=== PATIENT | male | born 1950 | race Caucasian/White ===

== ENCOUNTER 2016-11-27 21:24 | Emergency (ER) | payer BC, OTHER ==
[~2016-11-27] VITALS: Ht 172.7 cm; Wt 57.7 kg
[2016-11-27 21:28] VITALS: TEMP 36.9; Ht 172.7 cm; Wt 57.7 kg
[2016-11-27] MEDS ORDERED: MoRPHine SULFATE 4 MG/ML 1 ML CARP\\VIAL IV STA (21:42)
[2016-11-27] MEDS ORDERED: SODIUM CHLORIDE 0.9% 1000ML 1,000 ML IV STA (21:42)
[2016-11-27] MEDS ORDERED: ONDANSETRON INJ 2 MG/ML 2 ML VIAL IV STA (21:42)
--- NOTE | 2016-11-27 21:49 | EMERGENCY ROOM VISIT NOTE ---
History First contact with patient: 21:31 Chief Complaint: ABDOMINAL PAIN Stated Complaint: SEVERE ABDOMINAL PAIN, HERNIA Nursing Triage Summary: Sudden onset of abd pain while fishing today. Hx of inguinal hernia History of Present Illness The patient is a 65 year old male who presents to the Emergency Room with complaints of abdominal pain which has been intermittent for the past 2 months and worsened tonight. The patient states that he has had occasional pain in his right groin for the past few months. He reports lumps in both sides of his groin. He states that tonight a few hours ago, he was fishing and the pain suddenly became worse. He states the pain happened suddenly. He rates the discomfort a 6/10. He denies any aggravating or alleviating factors. He denies any urinary symptoms, changes in bowel movements, blood in his stools, nausea, vomiting or fevers. He states that he is otherwise healthy. He has not taken any medications for these symptoms. Review of Systems A complete 10 point review of systems was reviewed with the patient with pertinent positives and negatives as per history of present illness. All else were negative. Social History Smoking Status: Current Every Day Smoker Current/Historical Medications No Active Prescriptions or Reported Meds Allergies Coded Allergies: No Known Allergies (Unverified , 11/27/16) Physical Exam Vital Signs Date Time Temp Pulse Resp B/P (MAP) Pulse Ox O2 Delivery O2 Flow Rate FiO2 11/28/16 00:10 60 16 139/83 96 Room Air 11/27/16 22:26 66 16 163/91 96 Room Air 11/27/16 21:28 36.9 67 18 188/92 99 Room Air Physical Exam VITALS: Vitals are noted on the nurse's note and reviewed by myself. Vital signs stable. GENERAL: This is a 65-year-old female, in no acute distress, nondiaphoretic, well-developed well-nourished. HEART: Regular rate and rhythm without murmurs gallops or rubs. LUNGS: Clear to auscultation bilaterally without wheezes, rales or rhonchi. No retractions or accessory muscle use. ABDOMEN: Positive bowel sounds x 4. Soft, no significant tenderness to palpation. There is a firm lump palpable in the right inguinal region. This is tender to palpation. No skin changes. NEURO: Patient was alert and oriented to person place and time. Medical Decision & Procedures ER Provider Diagnostic Interpretation: CT ABDOMEN & PELVIS: No evidence of inguinal hernia. Small amount of free fluid adjacent to liver tip. Evaluation of bowel limited by lack of oral contrast and paucity of intra- abdominal fat. Dilated loop of small bowel in left abdomen, nonspecific. This could be related to peristalsis, but there is decompression of distal small bowel and part of colon and possibility of bowel obstruction not excluded. Appendix not identified. Bladder is distended. 5 mm hypodensity right lobe of liver, incompletely characterized. Atherosclerotic calcification. Subsegmental likely atelectatic changes at the visualized lower lungs. Degenerative changes of lumbar spine. Radiologist: Trey Arrington MD Laboratory Results 11/27/16 22:10 Red Blood Count 4.79, Mean Corpuscular Volume 95.2, Mean Corpuscular Hemoglobin 33.6, Mean Corpuscular Hemoglobin Concent 35.3, Mean Platelet Volume 9.5, Neutrophils (%) (Auto) 82.9, Lymphocytes (%) (Auto) 11.3, Monocytes (%) (Auto) 4.7, Eosinophils (%) (Auto) 0.5, Basophils (%) (Auto) 0.3, Neutrophils # (Auto) 10.99, Lymphocytes # (Auto) 1.50, Monocytes # (Auto) 0.62, Eosinophils # (Auto) 0.07, Basophils # (Auto) 0.04 11/27/16 22:10 Test 11/27/16 21:55 11/27/16 22:10 Urine Color YELLOW Urine Appearance CLEAR (CLEAR) Urine pH 5.0 (4.5-7.5) Urine Specific [place] 1.022 (1.000-1.030) Urine Protein NEG (NEG) Urine Glucose (UA) NEG (NEG) Urine Ketones TRACE (NEG) Urine Occult Blood 2+ (NEG) Urine Nitrite NEG (NEG) Urine Bilirubin NEG (NEG) Urine Urobilinogen NEG (NEG) Urine Leukocyte Esterase NEG (NEG) Urine WBC (Auto) 1-5 /hpf (0-5) Urine RBC (Auto) 0-4 /hpf (0-4) Urine Hyaline Casts (Auto) 0 /lpf (0-5) Urine Epithelial Cells (Auto) 5-10 /lpf (0-5) Urine Bacteria (Auto) NEG (NEG) White Blood Count 13.26 K/uL (4.8-10.8) Red Blood Count 4.79 M/uL (4.7-6.1) Hemoglobin 16.1 g/dL (14.0-18.0) Hematocrit 45.6 % (42-52) Mean Corpuscular Volume 95.2 fL (80-100) Mean Corpuscular Hemoglobin 33.6 pg (25-34) Mean Corpuscular Hemoglobin Concent 35.3 g/dl (32-36) Platelet Count 297 K/uL (130-400) Mean Platelet Volume 9.5 fL (7.4-10.4) Neutrophils (%) (Auto) 82.9 % Lymphocytes (%) (Auto) 11.3 % Monocytes (%) (Auto) 4.7 % Eosinophils (%) (Auto) 0.5 % Basophils (%) (Auto) 0.3 % Neutrophils # (Auto) 10.99 K/uL (1.4-6.5) Lymphocytes # (Auto) 1.50 K/uL (1.2-3.4) Monocytes # (Auto) 0.62 K/uL (0.11-0.59) Eosinophils # (Auto) 0.07 K/uL (0-0.5) Basophils # (Auto) 0.04 K/uL (0-0.2) RDW Standard Deviation 50.5 fL (36.4-46.3) RDW Coefficient of Variation 14.4 % (11.5-14.5) Immature Granulocyte % (Auto) 0.3 % Immature Granulocyte # (Auto) 0.04 K/uL (0.00-0.02) Anion Gap 9.0 mmol/L (3-11) Est Creatinine Clear Calc Drug Dose 60.9 ml/min Estimated GFR () 91.8 Estimated GFR (Non- 79.2 BUN/Creatinine Ratio 12.1 (10-20) Calcium Level 10.0 mg/dl (8.5-10.1) Total Bilirubin 0.3 mg/dl (0.2-1) Aspartate Amino Transf (AST/SGOT) 21 U/L (15-37) Alanine Aminotransferase (ALT/SGPT) 21 U/L (12-78) Alkaline Phosphatase 79 U/L (45-117) Total Protein 7.7 gm/dl (6.4-8.2) Albumin 4.7 gm/dl (3.4-5.0) Globulin 3.0 gm/dl (2.5-4.0) Albumin/Globulin Ratio 1.6 (0.9-2) Lipase 100 U/L (73-393) Medications Administered Medications (Trade) Dose Ordered Sig/Alexis Route Start Time Stop Time Status Last Admin Dose Admin Sodium Chloride 1,000 ml @ 999 mls/hr Q1H1M STAT IV 11/27/16 21:42 11/27/16 22:42 DC 11/27/16 22:10 999 MLS/HR Morphine Sulfate (MoRPHine SULFATE INJ) 4 mg NOW STAT IV 11/27/16 21:42 11/27/16 21:44 DC 11/27/16 22:10 4 MG Ondansetron HCl (Zofran Inj) 4 mg NOW STAT IV 11/27/16 21:42 11/27/16 21:44 DC 11/27/16 22:09 4 MG ED Course The patient was evaluated as above. Labs were drawn and IV access was obtained. Patient was medicated with 4 mg morphine and [address] of the abdomen and pelvis was performed and read by radiology as above. Discharge instructions were reviewed with the patient. The patient verbalized understanding of my assessment and treatment plan and was discharged home in good condition. Medical Decision Differential diagnosis includes bowel obstruction, diverticulitis, mesenteric adenitis, inguinal hernia, among others. The patient is a 65-year-old female who presents today complaining of right groin pain. Labs revealed a mild leukocytosis. No concerning anemia or electrolyte abnormality. Urinalysis was not suggestive of infection. CT scan showed findings consistent with an enteritis. Stat rad radiologist did comment on the possibility of a bowel obstruction, however given normal bowel movements and no vomiting until this is unlikely. The patient was instructed to give a clear liquid diet for the next few days and follow-up with his primary care provider for further evaluation and treatment. He was instructed to return here if he does develop vomiting, worsening pain, fevers or any other new/ concerning symptoms. The patient's case was reviewed with Dr. Reyna, ED attending physician, who agreed with my assessment and treatment plan. Based on the patient's presentation and work up, I feel the patient is stable for outpatient treatment. The patient was educated to return to the emergency department for any worsening of their current condition or new/concerning symptoms. He will follow up with his primary care provider. Medication reconciliation: I attest that I have personally reviewed the patient 's current medication list. Blood Pressure Screening: Patient was found to have a slightly elevated blood pressure due to circumstances. I do not believe that the patient requires hypertension monitoring. Impression Primary Impression: Lower abdominal pain Departure Information Dispostion Home / Self-Care Condition GOOD Prescriptions No Active Prescriptions or Reported Meds Referrals Landen Awad M.D. (PCP) Patient Instructions My [facility] Additional Instructions Clear liquid diet for the next 2-3 days or until you start feeling better. For pain control, you can use the following giog-xgy-lnyhakn medicines (if >12 yo): - Regular strength (325mg/tab) Tylenol (acetaminophen) 2 tabs every 4-6 hours as needed. Do not exceed 12 tablets in a 24 hour period. Avoid taking more than 4 grams (4000 mg) of Tylenol per day. This includes any other sources of acetaminophen you may take on a regular basis. - Regular strength (200 mg/tab) Advil (ibuprofen) 1-2 tabs every 4-6 hours as needed. Do not exceed a dose of 3200 mg per day. Follow-up with your primary care brother within one week. Return to the emergency department with any vomiting, fevers, worsening abdominal pain or other new/concerning symptoms.
[2016-11-27] MEDS ORDERED: OPTIRAY 320 IV PRN (22:00)
[2016-11-27 22:28] LABS: BASO % 0.3 %; BASO ABS # 0.04 K/uL (0-0.2); COMPLETE YES; EOS % 0.5 %; HEMATOCRIT 45.6 % (42-52); IG% 0.3 %; LYMPH % 11.3 %; MEAN CELL VOLUME 95.2 fL (80-100); MEAN CORPUSCULAR HEMOGLOBIN 33.6 pg (25-34); MEAN CORPUSCULAR HGB CONC 35.3 g/dl (32-36); MEAN PLATELET VOLUME 9.5 fL (7.4-10.4); MONO % 4.7 %; NEUT % 82.9 %; PLATELET COUNT 297 K/uL (130-400); RED BLOOD COUNT 4.79 M/uL (4.7-6.1); WHITE BLOOD COUNT 13.26 K/uL (4.8-10.8)
[2016-11-27 22:43] LABS: BUN/CREATININE RATIO 12.1 (10-20); POTASSIUM 4.1 mmol/L (3.5-5.1)
[2016-11-27 22:44] LABS: MANUAL MICROSCOPIC REQUIRED? NO; REVIEW REQ? NO; URINE APPEARANCE CLEAR (CLEAR); URINE BILIRUBIN NEG (NEG); URINE COLOR YELLOW; URINE NITRITE NEG (NEG); URINE SPECIFIC GRAVITY 1.022 (1.000-1.030); UROBILINOGEN NEG (NEG); ZZUR CULT IF INDIC CLEAN CATCH NO
[2016-11-27 22:46] LABS: ALB/GLOB RATIO 1.6 (0.9-2)
[2016-11-28 00:10] VITALS: BP 139/83; PULSE 60; O2SAT 96
--- NOTE | 2016-11-28 07:18 | DIAGNOSTIC IMAGING REPORT ---
ABD/PELVIS IV CONTRAST ONLY HISTORY:65 yearsMaleright groin pain, swelling COMPARISON: None available. TECHNIQUE: Multiple axial CT images of the abdomen and pelvis were obtained following the intravenous administration of 115 mL Optiray 320. FINDINGS: Exam is mildly limited secondary to patient motion. Ground glass opacities of the lung bases suggest passive atelectasis. There is mild motion artifact of the lung bases with calcified granulomas present within the posterior basal segment left lower lobe. No gross pneumoperitoneum. The imaged inferior cardiac chambers are unremarkable. There is a 6 x 5 mm low attenuating lesion of the anterior segment right hepatic lobe which is nonspecific however would statistically favor a cyst or hemangioma. The gallbladder, spleen, pancreas and adrenal glands appear to be within normal limits. Bilateral kidneys are unremarkable. There is distention of the urinary bladder lumen. There is tortuosity and atherosclerosis of the abdominal aorta. Is a mildly dilated fluid-filled loop of small bowel in left upper quadrant without evidence of proximal obstruction. The appendix is not definitively seen. No mass or collection is seen within the region of the right groin. No hernia identified. Discogenic degeneration is present at L4-L5 and L5-S1 along with facet arthrosis at these levels. IMPRESSION: 1. No acute intra-abdominal or intrapelvic abnormality identified. Specifically, the right groin appears unremarkable without hernia or mass. 2. Mildly dilated fluid-filled loop of small bowel in the left upper abdomen without evidence of proximal obstruction may reflect ileus or enteritis. 3. Appendix not identified. 4. Prior granulomatous disease. The above report was generated using voice recognition software. It may contain grammatical, syntax or spelling errors. Electronically signed by: Jeffrey Espinal 11/28/2016 7:17 AM Dictated Date/Time: 11/28/2016 7:07 AM
== END 2016-11-28 00:40 | disposition home or self-care (01) ==
LOC: C.EDB 21:25
DX: R10.30 Lower abdominal pain, unspecified (principal); F17.210 Nicotine dependence, cigarettes, uncomplicated

== ENCOUNTER 2017-04-03 07:55 | Emergency (ER) | payer BC ==
[~2017-04-03] VITALS: Ht 172.7 cm; Wt 57.2 kg
[2017-04-03 08:00] VITALS: TEMP 37; Ht 172.7 cm; Wt 57.2 kg
[2017-04-03] MEDS ORDERED: OXYMETAZOLINE HCL 0.05% NA SPR 15 ML BTL ONE (08:06)
--- NOTE | 2017-04-03 08:19 | EMERGENCY ROOM VISIT NOTE ---
History Report prepared by Dagmar: Renee Baez Under the Supervision of: Dr. Paul Duke M.D. First contact with patient: 08:10 Chief Complaint: NOSE BLEED (MINOR) Stated Complaint: NOSE BLEED History of Present Illness The patient is a 66 year old male who presents to the Emergency Room with complaints of a persistent left sided epistaxis that began last night around 2300. He currently rates his discomfort as a 1/10 in severity. The patient states that last evening he was out by his wood burner when he began experiencing a nose bleed. He reports recent congestion and a headache. The patient states that he thought he had a runny nose last night, but then notes bleeding. He denies being on any anticoagulants or history of previous nose bleeds. The patient denies any trauma. Source of History: patient Onset: last night around 2300 Position: nose (left sided) Symptom Intensity: 1/10 Quality: other (epistaxis) Timing: other (persistent) Associated Symptoms: + headache Note: Associated Symptoms: recent congestion. Review of Systems All systems have been listed, reviewed, and are negative other than those previously mentioned. Please see Additional Medical History Sheet. Past Medical & Surgical Medical Problems: (1) No active medical problems Family History Cancer Diabetes mellitus Social History Smoking Status: Current Every Day Smoker Alcohol Use: occasionally Marital Status: Housing Status: lives with significant other Occupation Status: retired Current/Historical Medications No Active Prescriptions or Reported Meds Allergies Coded Allergies: BEE STING (Unverified Allergy, Unknown, ,, 04/03/17) Physical Exam Vital Signs Date Time Temp Pulse Resp B/P (MAP) Pulse Ox O2 Delivery O2 Flow Rate FiO2 04/03/17 18:42 89 18 151/89 96 04/03/17 18:04 89 20 151/89 96 Room Air 04/03/17 17:30 79 18 171/97 96 Room Air 04/03/17 16:40 74 18 168/100 94 Room Air 04/03/17 15:58 74 16 181/112 94 Room Air 04/03/17 14:45 68 20 183/97 98 Room Air 04/03/17 13:09 64 20 175/102 100 Room Air 04/03/17 12:28 79 04/03/17 11:08 73 18 169/89 98 Room Air 04/03/17 09:28 84 18 147/96 96 Room Air 04/03/17 08:00 37.0 78 18 139/88 98 Room Air Physical Exam GENERAL: Patient awake, alert, oriented x 3. Patient follows commands. Patient does not appear toxic. Patient is adequately hydrated and well- nourished. SKIN: No erythema, pallor, cyanosis or rash HEENT: Normal head, pupils equal, reactive to light and accommodation. Blood in both naris, no active bleeding at present time. Ears normal. Oral cavity and posterior pharynx appear normal. Neck: Without adenopathy, no neck vein distention. LUNGS: Clear to auscultation. No wheezes, no rales, no rhonchi. HEART: No murmurs. No gallops. No rubs NEUROLOGIC: Cranial nerves II-XII within normal limits. No gross motor sensory function deficits. Medical Decision & Procedures Laboratory Results 04/03/17 12:18 Red Blood Count 4.80, Mean Corpuscular Volume 96.0, Mean Corpuscular Hemoglobin 33.8, Mean Corpuscular Hemoglobin Concent 35.1, Mean Platelet Volume 9.0, Neutrophils (%) (Auto) 76.8, Lymphocytes (%) (Auto) 17.5, Monocytes (%) (Auto) 4.6, Eosinophils (%) (Auto) 0.7, Basophils (%) (Auto) 0.3, Neutrophils # (Auto) 5.79, Lymphocytes # (Auto) 1.32, Monocytes # (Auto) 0.35, Eosinophils # (Auto) 0.05, Basophils # (Auto) 0.02 04/03/17 13:09 Test 04/03/17 12:18 04/03/17 13:09 White Blood Count 7.54 K/uL (4.8-10.8) Red Blood Count 4.80 M/uL (4.7-6.1) Hemoglobin 16.2 g/dL (14.0-18.0) Hematocrit 46.1 % (42-52) Mean Corpuscular Volume 96.0 fL (80-100) Mean Corpuscular Hemoglobin 33.8 pg (25-34) Mean Corpuscular Hemoglobin Concent 35.1 g/dl (32-36) Platelet Count 268 K/uL (130-400) Mean Platelet Volume 9.0 fL (7.4-10.4) Neutrophils (%) (Auto) 76.8 % Lymphocytes (%) (Auto) 17.5 % Monocytes (%) (Auto) 4.6 % Eosinophils (%) (Auto) 0.7 % Basophils (%) (Auto) 0.3 % Neutrophils # (Auto) 5.79 K/uL (1.4-6.5) Lymphocytes # (Auto) 1.32 K/uL (1.2-3.4) Monocytes # (Auto) 0.35 K/uL (0.11-0.59) Eosinophils # (Auto) 0.05 K/uL (0-0.5) Basophils # (Auto) 0.02 K/uL (0-0.2) RDW Standard Deviation 51.6 fL (36.4-46.3) RDW Coefficient of Variation 14.6 % (11.5-14.5) Immature Granulocyte % (Auto) 0.1 % Immature Granulocyte # (Auto) 0.01 K/uL (0.00-0.02) Prothrombin Time 10.7 SECONDS (9.0-12.0) Prothromb Time International Ratio 1.0 (0.9-1.1) Activated Partial Thromboplast Time 30.8 SECONDS (21.0-31.0) Partial Thromboplastin Ratio 1.2 Anion Gap 7.0 mmol/L (3-11) Est Creatinine Clear Calc Drug Dose 86.4 ml/min Estimated GFR () 115.5 Estimated GFR (Non- 99.6 BUN/Creatinine Ratio 24.5 (10-20) Calcium Level 9.5 mg/dl (8.5-10.1) Laboratory results as stated above per my review. Medications Administered Medications (Trade) Dose Ordered Sig/Alexis Route Start Time Stop Time Status Last Admin Dose Admin Oxymetazoline HCl (Afrin 0.05% Nasal [place]) 75 sprays STK-MED ONCE .ROUTE 04/03/17 08:06 04/03/17 08:07 DC 04/03/17 08:06 75 SPRAYS Morphine Sulfate (MoRPHine SULFATE INJ) 6 mg Q1H PRN IV 04/03/17 12:00 04/03/17 19:40 DC 04/03/17 15:30 6 MG Ondansetron HCl (Zofran Inj) 4 mg Q1HWA PRN IV 04/03/17 12:00 04/03/17 19:40 DC 04/03/17 15:30 4 MG Morphine Sulfate (MoRPHine SULFATE INJ) 6 mg NOW STAT IV 04/03/17 16:14 04/03/17 16:18 DC 04/03/17 16:24 6 MG Hydralazine HCl (HydrALAZINE INJ) 10 mg NOW STAT IV. 04/03/17 16:53 04/03/17 16:54 DC 04/03/17 16:58 5 MG Hydralazine HCl (HydrALAZINE INJ) 10 mg NOW STAT IV. 04/03/17 17:41 04/03/17 17:42 DC 04/03/17 18:00 5 MG ED Course 0806: Ordered Oxymetazoline HCl 75 sprays .route 0811: Past medical records reviewed. The patient was evaluated in room A11B. A complete history and physical examination was performed. 0842: I reevaluated the patient and he is noted to have a large clot in his left naris. The patient was asked to blow all the clots out of his left naris and 2 puffs of Afarin was reapplied. 0911: I reevaluated the patient and he is not bleeding at the current time. 0930: Per nursing staff, the patients nose is bleeding again. 0948: I reevaluated the patient and he is now bleeding at the present time. 1038: I reevaluated the patient and I inserted a 5.5 cm rhino rocket up the patients naris without complication, but it was painful for the patient. 1105: I reevaluated the patient and he has a small amount of blood coming out of his anterior naris. 1149: Per nursing staff the patients nose is still bleeding and he is now beginning to feel weak. 1154: I reevaluated the patient and he is continuing to bleed from the left side of his nose. 1200: Ordered Zofran Inj 4 mg IV, Morphine Sulfate 6 mg IV. 1210: I repacked the patients nose at this time. 1417: I reevaluated the patient and he is still bleeding from his left naris. 1440: I discussed the patients case with Dr. De Leon ENTs nurse. She states that she will give Dr. De Leon the information and that he will call back. 1500: The patient was signed out to Dr. Sharma at change of shift. I discussed the patients case with Dr. De Leon ENT. He will come in to see the patient. Medical Decision Nurses notes reviewed. Medical history sheet reviewed. Differential diagnosis includes but is not limited to: epistaxis, coagulopathy. 66-year-old male with epistaxis. The patient denies any recent trauma. He does have a woodstove in his house. He denies prior history of epistaxis. The patient has no history of quite neuropathy. He is currently not on any anticoagulants. I initially attempted to stop the bleeding with Afrin and pressure. That was not effective. I attempted to find the source of his bleed but could not locate it and therefore a 5.5 Rhino Rocket was placed and inflated with 5 mL of air. That also was unsuccessful and therefore I inserted a large spongelike Rhino Rocket into the left nares. That did not stop the bleed. Labs were evaluated. Please see above. The patient is not anemic. Consultation was obtained with . In the meantime, the case was signed off to Dr. Sharma. Medication Reconcilliation Current Medication List: was personally reviewed by me Consults Time Called: 1417 Consulting Physician: Dr. De Leon, ENT's nurse Returned Call: 1440 I discussed the patients case with Dr. De Leon ENTs nurse. She states that she will give Dr. De Leon the information and that he will call back. Impression Primary Impression: Epistaxis Scribe Attestation The scribe's documentation has been prepared under my direction and personally reviewed by me in its entirety. I confirm that the note above accurately reflects all work, treatment, procedures, and medical decision making performed by me. Departure Information Dispostion Still a Patient Prescriptions No Active Prescriptions or Reported Meds Referrals Landen Awad M.D. (PCP)
[2017-04-03] MEDS: MoRPHine SULFATE 10 MG/ML CARP/VIAL IV PRN ×2 (12:16→15:30)
[2017-04-03] MEDS: ONDANSETRON INJ 2 MG/ML 2 ML VIAL IV PRN ×2 (12:16→15:30)
[2017-04-03 12:35] LABS: BASO % 0.3 %; BASO ABS # 0.02 K/uL (0-0.2); COMPLETE YES; EOS % 0.7 %; HEMATOCRIT 46.1 % (42-52); IG% 0.1 %; LYMPH % 17.5 %; LYMPH ABS # 1.32 K/uL (1.2-3.4); MEAN CORPUSCULAR HEMOGLOBIN 33.8 pg (25-34); MEAN CORPUSCULAR HGB CONC 35.1 g/dl (32-36); MONO % 4.6 %; NEUT % 76.8 %; PLATELET COUNT 268 K/uL (130-400); WHITE BLOOD COUNT 7.54 K/uL (4.8-10.8)
[2017-04-03 12:51] LABS: PARTIAL THROMBOPLASTIN RATIO 1.2; PROTHROMBIN TIME (PATIENT) 10.7 SECONDS (9.0-12.0)
[2017-04-03 13:43] LABS: BUN/CREATININE RATIO 24.5 (10-20); CALCIUM 9.5 mg/dl (8.5-10.1); CREATININE 0.69 mg/dl (0.60-1.40); POTASSIUM 3.7 mmol/L (3.5-5.1)
--- NOTE | 2017-04-03 16:04 | EMERGENCY ROOM VISIT NOTE ---
ED Visit Note First contact with patient: 15:40
[2017-04-03] MEDS ORDERED: MoRPHine SULFATE 10 MG/ML CARP/VIAL IV STA (16:14)
--- NOTE | 2017-04-03 16:21 | Medical Consult ---
Consultation Date of Consultation: Apr 03, 2017. Attending Physician: History of Present Illness 66 yo male who presented to the ED early this am with a left sided epistaxis. Patient denies previous history of epistaxis. Patient denies trauma. He states that his nose started bleeding last night around 11pm. It did not stop so he presented to the ED this morning. In the ED, Dr. Duke attempted placement of an anterior rapid rhino but the bleeding persisted. He then tried a posterior sponge packing but bleeding continued. He called my office at around 3 pm for assistance. Patient denies any alleviating or exacerbating factors. No bleeding from the right side. He does have history of breaking his nose previously, but no acute trauma. He denies HTN. He denies atherosclerotic disease. He does smoke daily. Past Medical/Surgical History Medical Problems: (1) Epistaxis Status: Acute Family History Cancer Diabetes mellitus Social History Smoking Status: Current Every Day Smoker Marital Status: Housing Status: lives with significant other Occupation Status: retired Allergies Coded Allergies: BEE STING (Unverified Allergy, Unknown, ,, 04/03/17) Current Inpatient Medications Current Inpatient Medications Medications (Trade) Dose Ordered Sig/Alexis Route Start Time Stop Time Status Last Admin Dose Admin Morphine Sulfate (MoRPHine SULFATE INJ) 6 mg Q1H PRN IV 04/03/17 12:00 04/17/17 11:59 04/03/17 15:30 6 MG Ondansetron HCl (Zofran Inj) 4 mg Q1HWA PRN IV 04/03/17 12:00 05/03/17 11:59 04/03/17 15:30 4 MG Review of Systems Constitutional: No fever, No chills, No sweats, No weight loss, No weakness, No fatigue, No problem reported Eyes: No worsening of vision, No eye pain, No redness, No discharge, No diplopia, No problem reported ENT: + unusual epistaxis Respiratory: No cough, No sputum, No wheezing, No shortness of breath, No dyspnea on exertion, No dyspnea at rest, No hemoptysis, No problem reported Cardiovascular: No chest pain, No orthopnea, No PND, No edema, No claudication , No palpitations, No problem reported Abdomen: No pain, No nausea, No vomiting, No diarrhea, No constipation, No GI bleeding, No problem reported Neurologic: No memory loss, No paralysis, No weakness, No numbness/tingling, No vertigo, No balance problems, No problem reported Integumentary: No rash, No itch, No new/changing skin lesions, No color change , No bleeding, No problem reported Physical Exam Date Time Temp Pulse Resp B/P (MAP) Pulse Ox O2 Delivery O2 Flow Rate FiO2 04/03/17 15:58 74 16 181/112 94 Room Air 04/03/17 14:45 68 20 183/97 98 Room Air 04/03/17 13:09 64 20 175/102 100 Room Air 04/03/17 12:28 79 04/03/17 11:08 73 18 169/89 98 Room Air 04/03/17 09:28 84 18 147/96 96 Room Air 04/03/17 08:00 37.0 78 18 139/88 98 Room Air PROCEDURE Attention was directed to the left nare. The sponge pack was removed. Exam with a headlight commenced. Suction of the clot and active bleeding was performed. Patient does have a fairly severe leftward septal deviation. Blood was noted to be welling up in the nose. A 7.5 balloon pack was placed and inflated. This did control the anterior bleeding, but active bleeding on the posterior pharyngeal wall continued. More air was then placed in the balloon pack. This did not stop the bleeding posteriorly either. Thus, a formal pack was placed. The 7.5 balloon pack was removed. A 16 hong konger chapman catheter was placed through the nose and into the pharynx posteriorly. The balloon was inflated with saline. It was then pulled anteriorly against the choana. After securing it against the choana, vaseline gauze was packed from the floor of the nose, superiorly to stop the anterior bleeding portion. Once the bleeding had ceased, an umbilical clamp was used to secure the chapman and keep pressure on the vaseline gauze anteriorly. Patient tolerated procedure well. General Appearance: WD/WN, + mild distress Head: normocephalic, atraumatic Eyes: normal inspection, PERRL, EOMI ENT: hearing grossly normal, + pertinent finding (active epistaxis posteriorly on posterior pharyngeal wall as well as anteriorly through the sponge pack) Neck: supple, no adenopathy Respiratory/Chest: no respiratory distress, no accessory muscle use Skin: normal color, warm/dry Lymphatic: no adenopathy Laboratory Results Last 24 Hours Test 04/03/17 12:18 04/03/17 13:09 White Blood Count 7.54 K/uL Red Blood Count 4.80 M/uL Hemoglobin 16.2 g/dL Hematocrit 46.1 % Mean Corpuscular Volume 96.0 fL Mean Corpuscular Hemoglobin 33.8 pg Mean Corpuscular Hemoglobin Concent 35.1 g/dl Platelet Count 268 K/uL Mean Platelet Volume 9.0 fL Neutrophils (%) (Auto) 76.8 % Lymphocytes (%) (Auto) 17.5 % Monocytes (%) (Auto) 4.6 % Eosinophils (%) (Auto) 0.7 % Basophils (%) (Auto) 0.3 % Neutrophils # (Auto) 5.79 K/uL Lymphocytes # (Auto) 1.32 K/uL Monocytes # (Auto) 0.35 K/uL Eosinophils # (Auto) 0.05 K/uL Basophils # (Auto) 0.02 K/uL RDW Standard Deviation 51.6 fL RDW Coefficient of Variation 14.6 % Immature Granulocyte % (Auto) 0.1 % Immature Granulocyte # (Auto) 0.01 K/uL Prothrombin Time 10.7 SECONDS Prothromb Time International Ratio 1.0 Activated Partial Thromboplast Time 30.8 SECONDS Partial Thromboplastin Ratio 1.2 Sodium Level 140 mmol/L Potassium Level 3.7 mmol/L Chloride Level 106 mmol/L Carbon Dioxide Level 27 mmol/L Anion Gap 7.0 mmol/L Blood Urea Nitrogen 17 mg/dl Creatinine 0.69 mg/dl Est Creatinine Clear Calc Drug Dose 86.4 ml/min Estimated GFR () 115.5 Estimated GFR (Non- 99.6 BUN/Creatinine Ratio 24.5 Random Glucose 103 mg/dl Calcium Level 9.5 mg/dl Assessment & Plan 66 yo male with left sided posterior epistaxis - suspect sphenopalatine artery bleed - formal posterior pack placed as above - recommend transfer to tertiary care center for consideration of SPA embolization. - ED docs did coordinate transfer to [facility] to a medicine service - Discussed with Dr. Betancur who agrees with plan, and his service will be consultants along with the interventional radiology service for embolization.
[2017-04-03] MEDS ORDERED: HydrALAZINE HCL 20 MG/ML VIAL IV. STA ×2 (16:53→17:41)
[2017-04-03 18:42] VITALS: BP 151/89; PULSE 89; O2SAT 96
--- NOTE | 2017-04-03 22:34 | EMERGENCY ROOM VISIT NOTE ---
History First contact with patient: 15:40 Chief Complaint: NOSE BLEED (MINOR) Stated Complaint: NOSE BLEED History of Present Illness The patient is a 66 year old male who presents to the Emergency Room with complaints of epistaxis. Patient was signed out to me following being present in the ER for 8 hours. He denies any bleeding risk factors. He denies any anticoagulation. He notes the bleeding is coming from the left side of his nausea. This has been on and off today. Patient was being evaluated by ENT at this time. Please see Dr. Duke's note for full HPI. Patient did admit to a mild headache with the packing and bleeding. He denied any chest pain or shortness of breath. No trouble breathing. Review of Systems Please see history of present illness. Past Medical/Surgical History Medical Problems: (1) No active medical problems Family History Cancer Diabetes mellitus Social History Smoking Status: Current Every Day Smoker Alcohol Use: occasionally Marital Status: Housing Status: lives with significant other Occupation Status: retired Current/Historical Medications No Active Prescriptions or Reported Meds Physical Exam Vital Signs Date Time Temp Pulse Resp B/P (MAP) Pulse Ox O2 Delivery O2 Flow Rate FiO2 04/03/17 18:42 89 18 151/89 96 04/03/17 18:04 89 20 151/89 96 Room Air 04/03/17 17:30 79 18 171/97 96 Room Air 04/03/17 16:40 74 18 168/100 94 Room Air 04/03/17 15:58 74 16 181/112 94 Room Air 04/03/17 14:45 68 20 183/97 98 Room Air 04/03/17 13:09 64 20 175/102 100 Room Air 04/03/17 12:28 79 04/03/17 11:08 73 18 169/89 98 Room Air 04/03/17 09:28 84 18 147/96 96 Room Air 04/03/17 08:00 37.0 78 18 139/88 98 Room Air Physical Exam GENERAL: Sitting up in bed, cachectic, disheveled EYE EXAM: normal conjunctiva OROPHARYNX: Small amount of blood in the posterior oropharynx NOSE: bleeding in left nostril. none in right NECK: supple, no nuchal rigidity, no adenopathy, non-tender LUNGS: Normal chest wall mechanics NEURO EXAM: Normal sensorium Medical Decision & Procedures Laboratory Results 04/03/17 12:18 Red Blood Count 4.80, Mean Corpuscular Volume 96.0, Mean Corpuscular Hemoglobin 33.8, Mean Corpuscular Hemoglobin Concent 35.1, Mean Platelet Volume 9.0, Neutrophils (%) (Auto) 76.8, Lymphocytes (%) (Auto) 17.5, Monocytes (%) (Auto) 4.6, Eosinophils (%) (Auto) 0.7, Basophils (%) (Auto) 0.3, Neutrophils # (Auto) 5.79, Lymphocytes # (Auto) 1.32, Monocytes # (Auto) 0.35, Eosinophils # (Auto) 0.05, Basophils # (Auto) 0.02 04/03/17 13:09 Test 04/03/17 12:18 04/03/17 13:09 White Blood Count 7.54 K/uL (4.8-10.8) Red Blood Count 4.80 M/uL (4.7-6.1) Hemoglobin 16.2 g/dL (14.0-18.0) Hematocrit 46.1 % (42-52) Mean Corpuscular Volume 96.0 fL (80-100) Mean Corpuscular Hemoglobin 33.8 pg (25-34) Mean Corpuscular Hemoglobin Concent 35.1 g/dl (32-36) Platelet Count 268 K/uL (130-400) Mean Platelet Volume 9.0 fL (7.4-10.4) Neutrophils (%) (Auto) 76.8 % Lymphocytes (%) (Auto) 17.5 % Monocytes (%) (Auto) 4.6 % Eosinophils (%) (Auto) 0.7 % Basophils (%) (Auto) 0.3 % Neutrophils # (Auto) 5.79 K/uL (1.4-6.5) Lymphocytes # (Auto) 1.32 K/uL (1.2-3.4) Monocytes # (Auto) 0.35 K/uL (0.11-0.59) Eosinophils # (Auto) 0.05 K/uL (0-0.5) Basophils # (Auto) 0.02 K/uL (0-0.2) RDW Standard Deviation 51.6 fL (36.4-46.3) RDW Coefficient of Variation 14.6 % (11.5-14.5) Immature Granulocyte % (Auto) 0.1 % Immature Granulocyte # (Auto) 0.01 K/uL (0.00-0.02) Prothrombin Time 10.7 SECONDS (9.0-12.0) Prothromb Time International Ratio 1.0 (0.9-1.1) Activated Partial Thromboplast Time 30.8 SECONDS (21.0-31.0) Partial Thromboplastin Ratio 1.2 Anion Gap 7.0 mmol/L (3-11) Est Creatinine Clear Calc Drug Dose 86.4 ml/min Estimated GFR () 115.5 Estimated GFR (Non- 99.6 BUN/Creatinine Ratio 24.5 (10-20) Calcium Level 9.5 mg/dl (8.5-10.1) Medications Administered Medications (Trade) Dose Ordered Sig/Alexis Route Start Time Stop Time Status Last Admin Dose Admin Oxymetazoline HCl (Afrin 0.05% Nasal [place]) 75 sprays STK-MED ONCE .ROUTE 04/03/17 08:06 04/03/17 08:07 DC 04/03/17 08:06 75 SPRAYS Morphine Sulfate (MoRPHine SULFATE INJ) 6 mg Q1H PRN IV 04/03/17 12:00 04/03/17 19:40 DC 04/03/17 15:30 6 MG Ondansetron HCl (Zofran Inj) 4 mg Q1HWA PRN IV 04/03/17 12:00 04/03/17 19:40 DC 04/03/17 15:30 4 MG Morphine Sulfate (MoRPHine SULFATE INJ) 6 mg NOW STAT IV 04/03/17 16:14 04/03/17 16:18 DC 04/03/17 16:24 6 MG Hydralazine HCl (HydrALAZINE INJ) 10 mg NOW STAT IV. 04/03/17 16:53 04/03/17 16:54 MN 04/03/17 16:58 5 MG Hydralazine HCl (HydrALAZINE INJ) 10 mg NOW STAT IV. 04/03/17 17:41 04/03/17 17:42 DC 04/03/17 18:00 5 MG Procedure Nasal Packing Indication: epistaxis Verbal consent obtained. Risks and benefits were explained with the usual customary discussion. A time out was taken. Clots were removed with suction. The left naris was prepped with Afrin and lidocaine. A 7.5-cm nasal balloon was placed in a standard fashion. The patient tolerated this well. Hemostasis was achieved. No complications. ED Course 1555: I assessed the patient. He declines anything for pain. Dr. De Leon is bedside applying posterior nasal packing. 1608: I reviewed the patient's case with Dr. Zhou of [facility] ENT. The patient will be transferred to [facility]. 1615: Dr. De Leon discussed the patient's case with Dr. Zhou. 1617: I reviewed the patient's case with Dr. Pascual of [facility] Internal Medicine. The patient will be transferred to [facility] by ground for direct admission. 1700: I reassessed the patient. He has some posterior nasal drip. 1717: Performed nasal packing. See below for details. Medical Decision Patient was a 66-year-old male that was signed out to me by Dr. Duke following being in the ER for over 7 hours. Labs had previously been obtained were unremarkable. No bleeding risk factors. He initially presented for epistaxis of the left nostril. Multiple unsuccessful attempts at packing. On my evaluation Dr. Mims was at bedside evaluating patient. He did place a posterior packing. Patient did tolerate this procedure well. I discussed the case with Dr. Mims, [facility] transfer Center, their ENT physician and internal medicine. Patient was accepted in transfer. I arranged EMS. Updated family. Awaiting transport patient start to rebleed. I [place] [facility] [place] packed the right nostril with a 7-1/ 2 Rhino Rocket. Patient tolerated this procedure well. Was inflated with 6 mL' s. Bleeding ceased at this point. I had my cardiology nurse practitioner [place] [facility] [place] the bleeding did stop so they do not need to divert to the floor. He was eventually transported via ALS. Patient family were updated bedside. He still had a large clot in the posterior pharynx but no active bleeding. Patient was given 2 separate doses of hydralazine as systolic blood pressures were in the 190s and I felt this was complicating his posterior epistaxis as Dr. gallagher also agreed. Pt was also given IV morphine. He was monitored closely with repeat blood pressures as he was extremity hypertensive with an aggressive posterior bleed which was managed with IV hydralazine 2 ordered by myself along with packing of the right nostril and transfer to a tertiary care center for possible embolectomy as recommended by Dr. Mims from my ENT. Blood Pressure Screening Patient's blood pressure: Elevated blood pressure Blood pressure disposition: Elevated BP felt to be situational Impression Primary Impression: Acute posterior epistaxis Additional Impression: Hypertension Critical Care I have personally spent 35 minutes of critical care time in the direct management of this patient. This includes bedside care, interpretation of diagnostic studies, and testing, discussion with consultants, patient, and family members, and other required patient management activities. This 35 minutes is in excess of all separately billable procedures. Departure Information Dispostion Transfer Acute Care Facility Condition FAIR Prescriptions No Active Prescriptions or Reported Meds Referrals Landen Awad M.D. (PCP) Mark De Leon D.O. Forms WORK / SCHOOL INSTRUCTIONS, HOME CARE DOCUMENTATION FORM, IMPORTANT VISIT INFORMATION Patient Instructions My [facility], ED Nosebleed Problem Qualifiers Additional Impression: Hypertension Hypertension type: unspecified Qualified Codes: I10 - Essential (primary) hypertension
== END 2017-04-03 18:45 | disposition short-term general hospital (02) ==
LOC: C.EDB 07:57 → C.EDA 18:45
DX: R04.0 Epistaxis (principal); I10 Essential (primary) hypertension; J34.2 Deviated nasal septum; F17.200 Nicotine dependence, unspecified, uncomplicated; Z83.3 Family history of diabetes mellitus

== ENCOUNTER 2019-06-06 09:50 | Inpatient (IN) ==
--- NOTE | 2019-06-02 13:41 | Anesthesiology Consultation ---
Date of Service June 02, 2019 Left superior mediastinal mass encasing subclavian artery, appears to have involvement of L phrenic nerve and possibly some inpingement of the L recurrent laryngeal. CT does not indicate any compression of the trachea from mass. Assessment & Plan (1) Encounter for pre-operative examination: Chart Review Chart Review: Acceptable Risk for Surgery and Patient NOT seen in Pre Admission Testing Consults Requested none History Surgery Operation Date: 06/06/19 11:40 Proposed Procedures p Robotic Left Video-Assisted Thoracoscopy With Left Upper Wedge Resection, Possible Left Upper Lobectomy, With Mediastinal Lymphadenectomy - Chet Trevino MD, FACS Allergies Allergy/AdvReac Type Severity Reaction Status Date / Time bee venom protein (honey bee) Allergy Severe anaphyllaxi Verified 06/02/19 09:08 s Medications Home Medications Medication Instructions Recorded Confirmed Last Taken alprazolam 1 mg tablet 1 mg PO TID #30 tab 05/20/19 06/02/19 Unknown oxycodone 10 mg tablet 10 mg PO Q12H PRN #30 tab 05/20/19 06/02/19 Unknown oxycodone 10 mg tablet 10 mg PO Q12H PRN #6 tab 06/02/19 06/02/19 Unknown Past Medical History Medical History Hypertension (Chronic) Mediastinal mass (Inactive) Tobacco use disorder Past Family History Family History Mother Diabetes Father Cancer Stroke Past Surgical History Surgical History History of nasal surgery For epistaxis Social History Smoking Status: Current every day smoker tobacco type: cigars Hx Alcohol Use: No Hx Substance Use: No Testing Laboratory Results Laboratory Tests 05/15/19 05/15/19 05/15/19 15:42 15:42 15:42 WBC 9.54 Hgb 13.0 L Hct 38.3 L Plt Count 641 H PT 10.3 INR 1.0 APTT 30.6 Sodium 134 L Potassium 3.7 Chloride 100 Carbon Dioxide 31 BUN 9 Creatinine 0.67 Glucose 94 Electrocardiogram Date: 03/16/19 Findings: + NSR @ Chest X-Ray Date: 05/24/19 Findings: + L hemidiaphragm elevation Pulmonary Function Test Date: 05/26/19 Findings: + FEV1 pre (59) and + DLCO (74); no responds to Bronchodilators Cervical Spine Date: 05/15/19 Findings: stable spine. + degenerative changes Other Testing sniff test: limited excursion of L hemidiaphragm. no evidence of paralysis.
[2019-06-06] MEDS ORDERED: MIDAZOLAM HCL 1 MG/ML 2ML VIAL ONE (10:33)
[2019-06-06] MEDS ORDERED: fentaNYL citrate 100 MCG/2 ML VIAL ONE ×3 (10:33→14:13)
[2019-06-06] MEDS ORDERED: BUPIVACAINE 0.5 % 5 MG/1 ML MPF 30ML VIAL ONE (10:57)
[2019-06-06] MEDS ORDERED: SODIUM CHLORIDE 0.9% PF 50 ML VIAL ONE ×2 (10:58→11:25)
[2019-06-06] MEDS ORDERED: BUPIVACAINE LIPOSOME 1.3% 266 MG/20 ML VIAL ONE (10:58)
[2019-06-06] MEDS ORDERED: fentaNYL citrate 100 MCG/2 ML VIAL IV STA (11:09)
[2019-06-06] MEDS ORDERED: ACETAMINOPHEN 1000 MG/100 ML IV IV ONE (11:14)
[2019-06-06] MEDS ORDERED: DEXAMETHASONE SOD INJ 4 MG/ML VIAL ONE (11:18)
[2019-06-06] MEDS ORDERED: LIDOCAINE HCL 2% 2 ML VIAL/AMP(20MG/ML) INFIL ONE (11:18)
[2019-06-06] MEDS ORDERED: ONDANSETRON INJ 2 MG/ML 2 ML VIAL ONE (11:18)
[2019-06-06] MEDS ORDERED: PROPOFOL IV EMULSION 10 MG/ML 20 ML VIAL IV ONE (11:18)
[2019-06-06] MEDS ORDERED: LIDOCAINE MPF 4% LOCAL INJ 5 ML AMP ONE (11:27)
--- NOTE | 2019-06-06 11:29 | History & Physical Bridge Note ---
Date of Service June 06, 2019 History & Physical Bridge Note I have examined the patient, reviewed the History & Physical and in the interval since the performance of the History & Physical I have noted the following changes of clinical significance: no changes noted
[2019-06-06] MEDS ORDERED: fentaNYL citrate 100 MCG/2 ML VIAL IV PRN (11:42)
[2019-06-06] MEDS ORDERED: ONDANSETRON INJ 2 MG/ML 2 ML VIAL IV PRN (11:42)
[2019-06-06] MEDS ORDERED: ePHEDrine sulfate 50 MG/ML AMP IV PRN (11:42)
[2019-06-06] MEDS ORDERED: HYDROmorphone INJ 1 MG/ML SYRINGE IV PRN (11:42)
[2019-06-06] MEDS ORDERED: ATROPINE SULFATE 0.1 MG/ML 10ML SYR IV PRN (11:42)
[2019-06-06] MEDS: LR 15ML/HR IV SCH (11:44)
[2019-06-06] MEDS ORDERED: CEFAZOLIN 250 MG/ML 1 GM VIAL ONE (12:31)
[2019-06-06] MEDS ORDERED: GLYCOPYRROLATE 0.2 MG/ML VIAL ONE (13:54)
[2019-06-06] MEDS ORDERED: NEOSTIGMINE METHYLSULFATE 5 MG/5 ML SYR ONE (13:54)
--- NOTE | 2019-06-06 14:07 | Operative Report ---
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 Left level 10 lymph node Drains 24 Sudanese chest tube Anesthesia Type General Disposition Accompanied Patient To Recovery: Yes Disposition: Recovery Room Description of Procedure Mr. Bone is a 68-year-old active cigarette smoker who developed pain along his left shoulder and posterior back and underwent a CT scan which showed a left paramediastinal mass. This was not amenable to biopsy with a bronchoscopy, endobronchial ultrasound, or mediastinoscopy. I set him up for CT-guided biopsy and he got to the radiology suite however told the interventional radiologist that he simply could not have the biopsy done. He said he would "have to be put to sleep for anything like that". PET scan showed hypermetabolic activity only in the area and I felt that we may well be dealing with a lymphoma or perhaps a primary mediastinal mass or a left upper lobe cancer growing into the left paramediastinal. We decided a thoracoscopic biopsy would be worthwhile. I performed this with the da Sea robot and the thought that we may end up doing a major resection. This would include a left upper lobectomy. On 06/06/2019 patient is brought to the operating room and underwent uncomplicated left robot-assisted thoracoscopy. He had multiple adhesions especially laterally and I took these down. We did not see any intraperitoneal implants. The mass was easily seen and did not appear to be coming from the lung. I dissected this out and it bled fairly well. I did identify the subclavian artery distal and proximal to this mass. As stated this mass did not appear to be coming from the lung. I performed multiple biopsies it turns out this is an apparent poorly differentiated carcinoma. We sent off plenty of tissue and Dr. Downs felt that there was enough to perform appropriate studies. This did not appear to be a lymphoma. I attempted to dissect this off the aortic arch and it was markedly adherent. There is also adherent to the subclavian artery. I did not feel that this mass was resectable. This point I elected to abort the case. He tolerated it well. Procedure: The patient was brought to the operating room and laid in the supine position. He was sedated and the anesthesia bronchoscope was used and he could be seen that his cords were moving normally. He was then intubated after general anesthesia been induced. This was done with a double-lumen tube. This was positioned correctly with the scope and then he was positioned in the right lateral decubitus position. After prepping and draping in a sterile fashion appropriate timeout was called and antibiotics infused. 12 mm trocar was placed in about the seventh interspace been anterior to the midaxillary line. We could see there was some lateral adhesions we were able to get all of her ports in easily. I placed a single 8 mm port anteriorly and a single 8 mm port posteriorly. We then placed a 12 mm university administrative assistant's port posteriorly. Coming in I then performed a takedown of these lateral adhesions which were rather flimsy. We did this with electro cautery. This freed up everything until we got up to the mass. I was able to come medially and see that this was adherent to the mediastinum. I was able to identify the proximal subclavian artery. I then took down more adhesions and then came posteriorly and was able to identify the aorta and coming up posteriorly along the aorta came upon this mass and it was markedly adherent to the aorta. I attempted to meticulously dissect this off but it was surprisingly adherent. It also appeared to be markedly adherent to the subclavian artery. I then removed several several pieces of this mass and placed them in an Endobag. Also took out a level 10 lymph node on the left in its entirety. Frozen section of this lymph node showed no evidence of carcinoma. The mass however was not consistent with a lymphoma on frozen. It appeared to be a poorly differentiated carcinoma. Again grossly this did not appear to be coming from the lung although the lung was adherent. Attempted to dissect out more but it was very difficult and I was afraid we would get into major bleeding without the ability to completely resect this mass. This point at we elected to stop. He had a small air leak. His lungs were fairly emphysematous. Should be noted that his left hemidiaphragm did not work well. I obtained a "sniff test" preoperatively and while there was some movement, the diaphragm did not move much. It appeared to me that his phrenic nerve is probably involved in this process. A total of 266 mg of Exparel in 20 cc of solution was mixed with 30 cc of 0.5% bupivacaine and 250 cc of normal saline. This was used to inject each of the 4 port sites before making the incision. We also used it to perform an intercos dany block from the second to the 12th rib. This was injected in an interspace and fill that nicely under thoracoscopic guidance. A 24 Sudanese chest tube was placed to the anterior port and direct towards the apex and held in place with heavy silk suture. Patient is quite thin and we a 0 Vicryl to close the deeper muscle layers of each port site. 4-0 Monocryl was used in a running subcuticular fashion to approximate the wound edges. Tolerated well was extubated in the room and was transported to the postanesthesia care unit in stable condition. I attest to the content of the Intraoperative Record and any orders documented therein. Any exceptions are noted below.
--- NOTE | 2019-06-06 14:08 | Procedure Note ---
Procedure Note Date of Service June 06, 2019 Radial arterial line placed in OR 11 after induction in preparation for VATs with Dr. Trevino. Right wrist prepped with chlorhexidine and draped with sterile towels. 20 G angiocath placed under sterile technique utilizing sterile gloves, surgical hats and masks. Catheter threaded using seldinger technique with return of pulsatile, bright red blood. Site covered with occlusive dressing and taped in place. Waveform consistent with correct arterial placement. After placement, fingers of procedural hand had normal perfusion. Patient tolerated procedure well without complications. Dulce Londono MD, PhD Coding
[2019-06-06] MEDS ORDERED: METOCLOPRAMIDE HCL INJ 5 MG/ML 2 ML VIAL IV ONE (14:20)
[2019-06-06] MEDS ORDERED: MEPERIDINE HCL 25 MG/ML CARP IV PRN (14:31)
[2019-06-06] MEDS ORDERED: MEPERIDINE HCL 25 MG/ML CARP ONE (14:32)
--- NOTE | 2019-06-06 14:33 | XRay Report ---
XR chest 1V portable CLINICAL HISTORY: s/p bx/ mediastinal mass COMPARISON STUDY: 05/24/2019 FINDINGS: There is a large superior mediastinal mass. There is subcutaneous emphysema on the left. Th ere is mild elevation of the left hemidiaphragm. There is a left-sided chest tube present. There is n o evidence of pneumothorax.[ IMPRESSION: No evidence of pneumothorax status post mediastinal biopsy ACT 112: Negative or not required by law. Electronically signed by: Greg Crandall M.D. 06/06/2019 2:31 PM
--- NOTE | 2019-06-06 15:00 | Anesthesiology Progress Note ---
Date of Service June 06, 2019 Anesthesia Post Procedure Vital Signs Vital Signs: Temp Pulse Resp BP Pulse Ox 06/06/19 14:50 88 18 112/74 92 06/06/19 14:40 86 19 135/84 98 06/06/19 14:30 88 24 151/87 H 98 06/06/19 14:23 36.6 C 85 23 183/88 H 96 06/06/19 10:05 36.4 C L 77 21 138/80 93 Pain Intensity Left Chest: Pain Intensity: 2 Transfer of Care Handoff Completed per policy Notes Mental Status: alert / awake / arousable and participated in evaluation Patient Amnestic to Procedure: Yes Nausea / Vomiting: adequately controlled Pain: adequately controlled Airway Patency, RR, SpO2: stable & adequate BP & HR: stable & adequate Hydration State: stable & adequate Anesthetic Complications: no major complications apparent and Pt Satisfied with anesthetic care
[2019-06-06] MEDS ORDERED: ALBUT/IPRATROP 3MG/0.5MG NEB 3 ML VIAL NEB PRN (15:33)
[2019-06-06] MEDS ORDERED: ALPRAZolam 0.5 MG TABLET PO PRN (16:28)
[2019-06-06] MEDS: D5W AND 1/2NSS 1,000 ML IV SCH (17:01)
[2019-06-06] MEDS: OXYCODONE HCL IR 5 MG TAB (IMMEDIATE RELEASE) PO PRN (18:07)
[2019-06-06] MEDS: MoRPHine SULFATE 2 MG/ML CARP IV PRN (20:04)
[2019-06-06] MEDS: DOCUSATE SODIUM 100 MG CAP PO SCH (22:14)
[2019-06-06] MEDS: ACETAMINOPHEN 1,000 MG/100 ML VIAL IV SCH (22:15)
[2019-06-06] MEDS: METOCLOPRAMIDE HCL INJ 5 MG/ML 2 ML VIAL IV SCH (22:15)
[2019-06-07] MEDS: OXYCODONE HCL IR 5 MG TAB (IMMEDIATE RELEASE) PO PRN ×3 (00:11→15:34)
[2019-06-07] MEDS: MoRPHine SULFATE 2 MG/ML CARP IV PRN ×5 (02:19→17:11)
[2019-06-07] MEDS: D5W AND 1/2NSS 1,000 ML IV SCH (03:01)
[2019-06-07] MEDS: METOCLOPRAMIDE HCL INJ 5 MG/ML 2 ML VIAL IV SCH (05:55)
[2019-06-07] MEDS: LR 15ML/HR IV SCH (05:56)
[2019-06-07] MEDS: ACETAMINOPHEN 1,000 MG/100 ML VIAL IV SCH (05:57)
[2019-06-07] MEDS: DOCUSATE SODIUM 100 MG CAP PO SCH ×2 (07:42→20:05)
--- NOTE | 2019-06-07 07:58 | Surgery Progress Note ---
Date of Service June 07, 2019 Assessment & Plan (1) Carcinoma: Present on Admission?: Yes (2) Mediastinal mass: Mr. Roberts is 1 day status post a robot-assisted thoracoscopic biopsy of a mediastinal mass. This is a very poorly differentiated carcinoma and may well be a squamous cell carcinoma but we would have to wait for immunohistochemical stains and other studies before rendering a final diagnosis. It is isolated to the area above the aorta on the left mediastinal area. Unfortunately, it is involving the aorta and the subclavian artery. 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 This mass was not resectable. Patient has done well from a surgical standpoint. We will probably get his chest tube out and get him home tomorrow. Had a long talk with the patient and his family. His daughter is a PEDIATRIC REGISTERED NURSE who has medical knowledge and understands the implications of this diagnosis of carcinoma. Interestingly enough, this does not appear to be coming from the lung. I am curious as to the final pathology. Present on Admission?: Yes Subjective The patient is complaining of some pain today however he has been ambulating in the hallway. He is on 2 L at 100% saturations. He been urinating well and tolerating p.o. well. Physical Exam Respiratory: His lungs are relatively clear on auscultation without wheezing or rales. His regular rate and rhythm of his heart. He has no peripheral edema. Neurologically he is intact. Results & Data Vital Signs (Past 12 Hours) Vital Signs Temp Pulse Resp BP Pulse Ox Pulse Ox 06/07/19 06:27 18 100 06/07/19 05:15 97 06/07/19 04:02 36.5 C 68 16 120/74 97 06/07/19 02:03 36.5 C 65 16 127/78 97 06/07/19 00:05 36.5 C 68 16 118/70 97 97 06/06/19 22:25 36.6 C 73 18 144/75 H 97 06/06/19 20:05 36.5 C 90 18 109/70 92 PG Care Time/CCT Total # of Minutes Spent Total Time Spent with Patient: Total time spent is greater than 50% in coordination of care (as documented) at patient's floor/unit and/or counseling patient:
--- NOTE | 2019-06-07 08:07 | XRay Report ---
XR chest 1V portable HISTORY: 68 years-old Male s/p bx. mediastinal mass COMPARISON: Chest radiograph 06/06/2019, PET CT 05/30/2019 TECHNIQUE: Portable AP view of the chest FINDINGS: A left-sided chest tube is noted, distal tip terminating adjacent to the left lung apex. Decreased bennett bcutaneous emphysema of the left supraclavicular distribution and lateral left chest wall. No definit e pneumothorax identified. Left hemidiaphragmatic elevation with left basilar opacities suggestive of atelectasis. Unchanged. Progressive right basilar densities. Pulmonary vascular congestion. Left upp er mediastinal mass redemonstrated. Cardiac silhouette is unchanged. Degenerative changes of the shou lders and spine. IMPRESSION: 1. Stable positioning of the left-sided chest tube status post mediastinal biopsy. No definite pneumo thorax identified. 2. Mildly decreased subcutaneous emphysema of the left chest wall. 3. Progressive right basilar opacities suggest atelectasis or pneumonitis. 4. Mild pulmonary vascular congestion. ACT 112: Negative or not required by law. The above report was generated using voice recognition software. It may contain grammatical, syntax o r spelling errors. Electronically signed by: Jeffrey Espinal M.D. 06/07/2019 8:05 AM
--- NOTE | 2019-06-07 08:07 | Anesthesiology Progress Note ---
Date of Service June 07, 2019 Anesthesia Post Procedure Vital Signs Vital Signs: Temp Pulse Pulse Resp BP Pulse Ox Pulse Ox 06/07/19 06:27 18 100 06/07/19 05:15 97 06/07/19 04:02 36.5 C 68 16 120/74 97 06/07/19 02:03 36.5 C 65 16 127/78 97 06/07/19 00:05 36.5 C 68 16 118/70 97 97 06/06/19 22:25 36.6 C 73 18 144/75 H 97 06/06/19 20:05 36.5 C 90 18 109/70 92 06/06/19 19:00 36.4 C L 84 18 113/75 94 06/06/19 18:00 96 H 18 112/73 93 06/06/19 17:04 36.4 C L 90 18 116/75 94 06/06/19 16:30 36.6 C 85 18 111/71 95 06/06/19 15:45 88 15 99/63 L 92 06/06/19 15:29 90 16 102/62 92 06/06/19 15:20 90 14 100/63 92 06/06/19 15:10 88 21 103/70 92 06/06/19 15:00 37.6 C H 90 19 108/70 92 06/06/19 14:50 88 18 112/74 92 06/06/19 14:40 86 19 135/84 98 06/06/19 14:30 88 24 151/87 H 98 06/06/19 14:23 36.6 C 85 23 183/88 H 96 06/06/19 10:05 36.4 C L 77 21 138/80 93 Pain Intensity Left Chest: Pain Intensity: 4 Transfer of Care Handoff Completed per policy Notes Mental Status: alert / awake / arousable Patient Amnestic to Procedure: Yes Nausea / Vomiting: adequately controlled Pain: adequately controlled Anesthetic Complications: no major complications apparent and Pt Satisfied with anesthetic care
[2019-06-07] MEDS: ENOXAPARIN INJ 40 MG/0.4 ML SYR SQ SCH (09:25)
[2019-06-07] MEDS ORDERED: ACETAMINOPHEN SOL 650 MG/20.3 ML UDC PO SCH (14:00)
[2019-06-07] MEDS: ONDANSETRON INJ 2 MG/ML 2 ML VIAL IV PRN (15:40)
[2019-06-07] MEDS: ACETAMINOPHEN 325 MG TAB PO SCH (18:14)
[2019-06-08] MEDS: ACETAMINOPHEN 325 MG TAB PO SCH ×2 (00:13→05:33)
[2019-06-08] MEDS: MoRPHine SULFATE 2 MG/ML CARP IV PRN ×2 (04:02→07:32)
[2019-06-08] MEDS: ONDANSETRON INJ 2 MG/ML 2 ML VIAL IV PRN (04:07)
--- NOTE | 2019-06-08 07:29 | XRay Report ---
SINGLE VIEW CHEST CLINICAL HISTORY: Status post lung biopsy. FINDINGS: An AP, portable, upright chest radiograph is compared to study dated 06/07/2019 and correlat ed with chest CT dated 05/16/2019. The examination is degraded by portable technique and patient rota tion. The heart is top normal for projection. The pulmonary vasculature is noncongested. Emphysema an d chronic interstitial thickening are similar to previous. There is chronic elevation of the left hem idiaphragm with left basilar atelectasis. A left-sided chest tube is unchanged in position. A left ap ical/paramediastinal mass lesion is unchanged from previous. Right lung appears clear. No pneumothora x is clearly seen. The skeletal structures are osteopenic. The bony thorax is grossly intact. Subcuta neous emphysema is again seen along the left chest wall. IMPRESSION: 1. A left-sided chest tube is unchanged in position. No pneumothorax is clearly identified. 2. Emphysema and a left-sided mass lesion are unchanged. ACT 112: Negative or not required by law. Electronically signed by: Manjinder Cruz M.D. 06/08/2019 7:27 AM
--- NOTE | 2019-06-08 08:02 | XRay Report ---
XR chest 1V portable CLINICAL HISTORY: 68 years-old Male presenting with tube removal. TECHNIQUE: Portable upright AP view of the chest was obtained. COMPARISON: 06/08/2019 at 7:13 a.m. FINDINGS: Prominence of the left superior mediastinal silhouette. Cardiac silhouette top normal in size. Elevat ion of the left hemidiaphragm. Left basilar opacity in addition to the left apical opacity. No pneumo thorax. Right lung and pleural space clear. Osseous structures normal. Upper abdomen normal. IMPRESSION: 1. Elevation of the left hemidiaphragm with left basilar atelectasis. 2. Paramediastinal left apical density consistent with underlying known mass. 3. No pneumothorax. ACT 112: Negative or not required by law. Electronically signed by: Jn Hargrove M.D. 06/08/2019 8:00 AM
[2019-06-08] MEDS: DOCUSATE SODIUM 100 MG CAP PO SCH (08:53)
[2019-06-08] MEDS: ENOXAPARIN INJ 40 MG/0.4 ML SYR SQ SCH (08:53)
[2019-06-08] MEDS: OXYCODONE HCL IR 5 MG TAB (IMMEDIATE RELEASE) PO PRN (10:59)
--- NOTE | 2019-06-09 12:31 | Coding Query ---
BMI To promote full compliance with coding requirements relating to patient care, physician participation is requested in all cases of insurance coder uncertainty. Please assist us with the question(s) below: Please place an X within the parenthesis (x). If other, please document: BMI 17.8 was documented in this record for this patient. The Operative Report documents, "A 24 Lao chest tube was placed to the anterior port and direct towards the apex and held in place with heavy silk suture. Patient is quite thin and we a 0 Vicryl to close the deeper muscle layers of each port site. 4-0 Monocryl was used in a running subcuticular fashion to approximate the wound edges.". If the BMI is significant, please check the box that provides a more specific associated diagnosis: ( ) Overweight/Obese ( ) Obesity ( ) Morbid obesity ( ) Obesity Hypoventilation Syndrome (OHS) ( ) Heathy weight, not significant (X ) Underweight/Thin ( ) Other, please specify Thank you Nae RODRIGUEZ
--- NOTE | 2019-06-09 20:33 | Discharge Summary ---
DATE OF ADMISSION: 06/06/2019. DATE OF DISCHARGE: 06/08/2019. DISCHARGE DIAGNOSIS: Poorly differentiated carcinoma, left upper mediastinum of unknown origin. HOSPITAL COURSE: Mr. Davenport is a very nice 68-year-old anxious individual who is a cigarette smoker. He had pain in his left shoulder and left posterior chest and underwent a workup in the ER which showed him to have a mass in his left upper mediastinal area. It is unclear whether this is coming from his lung growing into his mediastinum or vice versa. We attempted a needle biopsy. The patient stated he was too anxious and had to go to sleep for that. As he was symptomatic, I elected to proceed with a thoracoscopic biopsy with a possible resection if it appeared feasible. On 06/06/2019, the patient was brought to the operating room and underwent uncomplicated robot-assisted left thoracoscopy. This mass is a poorly differentiated carcinoma and appears to be originating from his mediastinum, but it is difficult to say. It is encasing his subclavian artery on the right as well as his aorta. It was quite adherent. I biopsied this multiple times and frozen section showed a poorly differentiated carcinoma. I was able to peel off most of the lung; however, the mass was quite large and it was interesting in that the PET scan did not light up anywhere else, but this area. At any rate, we closed him after the biopsy and he actually did quite well with this. He had a small air leak, so I kept his chest tube in for 2 days and on postop day 2 removed it. I sent him home with narcotics and explained to him that we would have to wait for our final diagnosis, but we will have him seen by the radiation oncologist quite soon. I had a long discussion with the pathologist and reviewed the slides. The markers were very unusual. It is unclear what we are dealing with, although there are some slides with some lung tissue. It is unclear whether this is growing from the mediastinum out into the lung or vice versa; however, by thoracoscopy it appears to be growing out from the mediastinum. In addition, it appears his phrenic nerve is involved which is not surprising. The patient was discharged home on postop day 2. His incisions are clean. His x-ray looked good. He is on room air. We will see him back in the office in a week to go over his final pathology. These slides are going to have to be sent out for further evaluation.
== END 2019-06-08 11:15 | disposition home or self-care (01) | DRG 167 ==
LOC: ASU 09:50 → 3N 14:05